=== PATIENT | male | born 1995 | race Caucasian/White ===

== ENCOUNTER 2023-01-12 21:05 | Emergency (ER) | payer OTHER ==
[2023-01-12 21:30] VITALS: BP 121/67; PULSE 89; RESP 18; TEMP 97.8; BMI 25.2
== END 2023-01-12 23:26 | disposition home or self-care (01) ==
LOC: FER 21:05
PROC: 0YQ Anatomical Regions, Lower Extremities, Repair (ICD-10-PCS; principal; 2023-01-12)
DX: S81.812A Laceration without foreign body, left lower leg, initial encounter (principal); W22.8XXA Striking against or struck by other objects, initial encounter; Y93.89 Activity, other specified
CPT/HCPCS: 73590-TC-LT-FY; 99283-25

== ENCOUNTER 2023-01-22 19:26 | Emergency (ER) | payer OTHER ==
[2023-01-22 19:38] VITALS: BP 114/68; PULSE 88; RESP 16; TEMP 98.4; BMI 25.2
[2023-01-22 20:15] LABS: HEMATOCRIT 40.9 % (35.4-49); HEMOGLOBIN 13.5 G/dL (11.7-16.9); MCH 29.3 pg (25.7-33.7); MCHC 33.1 g/dl (32.0-35.9); MEAN CELL VOLUME 88.8 fl (80-96); MEAN PLT VOLUME 7.7 fl (7.5-11.1); PLATELET COUNT 205.8 10^3/uL (134-434); RBC 4.61 10^6/uL (4.00-5.60); RDW 14.4 % (11.9-15.9); WHITE BLOOD COUNT 7.5 10^3/uL (4.0-10.8)
[2023-01-22 20:26] LABS: PLATELET ESTIMATE ADEQUATE
[2023-01-22 20:38] LABS: ALBUMIN 4.7 g/dl (3.4-5.0); ALK PHOS 41 U/L (45-117); ANION GAP 6 mmol/L (4-13); BILIRUBIN,TOTAL 0.4 mg/dl (0.2-1); CALCIUM 9.5 mg/dl (8.5-10.1); CHLORIDE 101 mmol/L (98-107); CO2 29 mmol/L (21-32); CREATININE 0.9 mg/dl (0.6-1.3); GLUCOSE,RANDOM 92 mg/dl (74-106); POTASSIUM 4.1 mmol/L (3.5-5.1); SGOT/AST 39 U/L (15-37); SGPT/ALT 27 U/L (7-52); SODIUM 136 mmol/L (136-145); TOT PROT 7.3 g/dl (6.4-8.2)
== END 2023-01-22 20:15 | disposition home or self-care (01) ==
LOC: FER 19:26
DX: Z48.02 Encounter for removal of sutures (principal)
CPT/HCPCS: 36415; 80053; 85025; 85651; 86140; 99283-25